=== PATIENT | male | born 1980 | race Caucasian/White ===

== ENCOUNTER 2017-02-12 23:17 | Emergency (ER) ==
--- NOTE | 2017-02-13 00:29 | PROVIDER DOCUMENTATION ---
HPI-Musculoskeletal Pain/Inj - GENERAL Chief Complaint: Extremity Injury Stated Complaint: FOOT PAIN Time Seen by Provider: 02/13/17 00:23 Source: patient - HX OF PRESENT ILLNESS-MUSKULOSKELTAL Nature of Presenting Problem: Pt is a 36 y/o M c chief complaint of R foot pain with lateral compression x 1 week. Pt states he kicked a cinder block and is concerned he may have fractured a bone. On arrival, pt is ambulating with difficulty or pain. Pt denies any loss of sensation or strength to his foot. Review of Systems - Adult - REVIEW OF SYSTEMS - ADULT Constitutional: reports: no symptoms reported. denies: chills, fatique Eyes: reports: no symptoms reported. denies: blurred vision, double vision Ears, Nose, Mouth & Throat: reports: no symptoms reported. denies: ear pain, nose pain, throat pain Cardiovascular: reports: no symptoms reported. denies: chest pain, orthopnea Respiratory: reports: no symptoms reported. denies: cough, shortness of breath Gastrointestinal: reports: no symptoms reported. denies: abdominal pain, nausea Genitourinary: reports: no symptoms reported. denies: dysuria, hematuria Musculoskeletal: reports: bone pain. denies: joint pain, joint swelling Integumentary: reports: no symptoms reported. denies: itching, rash Neurological: reports: no symptoms reported. denies: numbness, paresthesia Psychiatric: reports: no symptoms reported. denies: anxiety, emotional problems Endocrine: reports: no symptoms reported. denies: cold intolerance, heat intolerance Hematologic/Lymphatic: reports: no symptoms reported. denies: blood clots, low blood count Allergic/Immunologic: reports: no symptoms reported. denies: food allergy, frequent infections All Other Systems: Reviewed and Negative Past History - Adult - PAST MEDICAL HISTORY-ADULT Review of Records: reports: Old Records Reviewed, Nursing Assessment Review, Medications Reviewed, Social history reviewed & non-contributory. Major Childhood Illnesses: reports: denies history Cardiovascular: reports: denies history Respiratory: reports: denies history Gastrointestinal: reports: denies history Obstetrical/Gynecological: reports: denies history Genitourinary: reports: denies history Musculoskeletal: reports: denies history Neurological: reports: denies history Endocrine/Immune: reports: denies history Other Conditions: reports: other (cataract) - PRIOR SURGERIES/PROCEDURES Surgical/Procedure History: reports: none - PRIOR HOSPITALIZATIONS Prior Hospitalizations: reports: none - IMMUNIZATION STATUS Childhood Immunizations: See Nurse Assessment Flu Vaccine: See Nurse Assessment - FAMILY HISTORY Family History: reviewed, not pertinent - SOCIAL HISTORY Smoking: denies Substance Use: none/never Alcohol Use Frequency: never Living Situation: family Physical Exam-Injury Related - Physical Exam-Injury Related Initial Vital Signs Reviewed: Yes General Appearance: appears well, alert, no apparent distress Eyes: PERRL/EOMI, pink conjunctivae Head, Ears, Nose, Mouth & Throat: normocephalic/atraumatic, moist mucous membranes, normal ENT inspection Neck: non-tender, full range of motion, supple Respiratory: chest non-tender, lungs clear Cardiovascular: normal peripheral pulses, regular rate, rhythm, no edema Abdominal Exam: normal bowel sounds, non tender, soft Back Exam: normal inspection, no CVA tenderness, no vertebral tenderness Extremity: tenderness (R foot pain c lateral squeezing) Integumentary: normal color, warm/dry, blanching Neurologic: grossly normal, no motor/sensory deficits Psych/Mental Status: normal mood/affect, normal thought content, normal thought process, oriented x 3 - Glascow Coma Score Best Eye Response (Constantine): (4) open spontaneously Best Verbal Response (Constantine): (5) oriented Best Motor Response (Constantine): (6) obeys commands Progress - PLAN OF CARE/RESULTS Progress/Plan/Lab Results: Orders Category Date Time Status FOOT COMPLETE RIGHT [RAD] Stat Exams 02/12/17 23:25 Taken Vital Signs - 24 hr 02/12/17 02/13/17 23:22 00:46 Temperature 97.9 F 97.4 F L Pulse Rate 77 68 Respiratory 18 16 Rate Blood Pressure 142/94 135/71 O2 Sat by Pulse 100 98 Oximetry - XRAY 1 XRAY: Right XRAY Study: Foot Impression: Normal XRAY Interpretation: no fx Departure - Departure Time of Disposition Order: 00:28 DIAGNOSIS: Contusion, foot Qualifiers: Encounter type: initial encounter Laterality: right Qualified Code(s): S90.31XA - Contusion of right foot, initial encounter Disposition: HOME 01 Certified Medical Emergency: Emergent Condition: Stable Additional Instructions: ED Follow Up Instructions: You have been treated by a care provider in the Emergency Department. These instructions are being provided to you so you can have an understanding of how to care for yourself upon discharge. Upon discharge from the Emergency Department, you are responsible for making arrangements for follow-up care by a physician of your choice. Take all prescribed medications as directed. Return to the Emergency Department immediately for any new or worsening symptoms. You may call the Physician Referral phone number at [phone] to obtain a list of Physicians who are taking new patients. Prescriptions: Ibuprofen [Motrin] 800 mg PO Q8H PRN PRN #20 tablet PRN Reason: inflammation Omeprazole [Prilosec] 20 mg PO DAILY@0700 #20 capsule Referrals: [facility] [Provider Group] - Call for Appoint. -1 week Forms: Return to School/Parent Work Instructions: Ibuprofen tablets and capsules, Contusion, [id number], Omeprazole capsules (sprinkle caps) - Rx Attestation - Physician/ DELORES Attestation Patient care was provided by Advanced Practice Provider:: Yes Advanced Practice Provider:: Farhad Arana Advanced Practice Provider documentation review:: The Mid-level provider documentation, treatment plan and medical decision making was reviewed by the physician who agrees with all treatment and medical decision making by the MLP.
[2017-02-13 00:47] VITALS: BP 135/71
--- NOTE | 2017-02-13 06:39 | Diag Imaging Result Document ---
PROCEDURE NAME: FOOT COMPLETE RIGHT - 02/12/2017 RIGHT FOOT 3 VIEWS: FINDINGS: No fracture. No dislocation. IMPRESSION: No acute bony injury.
== END 2017-02-13 00:46 | disposition home or self-care (01) ==
LOC: P.ED 23:17
DX: S90.31XA Contusion of right foot, initial encounter (principal); M79.671 Pain in right foot; W22.8XXA Striking against or struck by other objects, initial encounter
CPT/HCPCS: 99283

== ENCOUNTER 2018-11-27 20:03 | Inpatient (IN) ==
--- NOTE | 2018-11-27 20:32 | Diag Imaging Result Doc PS360 ---
EXAM: ABDOMEN FLAT/UPRIGHT 11/27/2018 HISTORY: swallowed 2 disposable razor blade heads. TECHNIQUE: Flat and upright abdomen COMMENT: There is a large amount of stool throughout the colon particularly in the rectum. The small bowel and stomach are not distended. There is a foreign body which appears to be in the antrum of the stomach. Only one foreign body is identified. There are no previous studies. There is no evidence of organomegaly or mass. IMPRESSION: Foreign body in the stomach. Constipation. Electronically signed by Lucoh Roberts 11/27/2018 8:29 PM
--- NOTE | 2018-11-28 00:39 | PROVIDER DOCUMENTATION ---
This chart was entered by Marcia Barrientos Scribe, acting as scribe for Ruslan Valerio MD. HPI-General Adult - General Chief Complaint: General Adult Stated Complaint: PT STATES HE SWALLOWED TWO RAZOR BLADES Time Seen by Provider: 11/27/18 23:32 Source: patient Allergies/Adverse Reactions: Patient Allergies Allergy/AdvReac Type Severity Reaction Status Date / Time No Known Allergies Allergy Verified 12/17/15 19:03 Home Medications: Home Medication List Medication Instructions Recorded Confirmed Last Taken Type Ibuprofen [Motrin] 800 mg PO Q8H PRN PRN #20 tablet 02/13/17 Unknown Rx Omeprazole [Prilosec] 20 mg PO DAILY@0700 #20 capsule 02/13/17 Unknown Rx - History of Present Illness -Gen Adult Nature of Presenting Problems: pt is a 38 yr old male presenting from [facility] [place], pt reports he swallowed 2 razor blades at approx 1700 tonight. pt denies attempt to harm self, denies any pain at this time. Location of Pain/Injury: reports: none Pain Radiation: reports: no radiation Quality of Pain: reports: none Onset/Duration: reports: this evening (1700) Timing: reports: still present Context/Activities at Onset: reports: light activity Modifying Factors: improves with: nothing Associated Symptoms: denies: constipation, diarrhea, fever/chills, nausea, vomiting Similar Symptoms Previously?: No Recently seen or treated by another doctor?: No Review of Systems - Adult - REVIEW OF SYSTEMS - ADULT Constitutional: denies: chills, fever Eyes: reports: no symptoms reported Ears, Nose, Mouth & Throat: reports: no symptoms reported Cardiovascular: reports: no symptoms reported Respiratory: reports: no symptoms reported Gastrointestinal: denies: abdominal pain, hematemesis, diarrhea, nausea, rectal bleeding, vomiting Genitourinary: reports: no symptoms reported Musculoskeletal: reports: no symptoms reported Integumentary: reports: no symptoms reported Neurological: reports: no symptoms reported Psychiatric: reports: no symptoms reported Endocrine: reports: no symptoms reported Hematologic/Lymphatic: reports: no symptoms reported Allergic/Immunologic: reports: no symptoms reported All Other Systems: Reviewed and Negative Past History - Adult - PAST MEDICAL HISTORY-ADULT Review of Records: reports: Nursing Assessment Review, Medications Reviewed, Social history reviewed & non-contributory. Major Childhood Illnesses: reports: denies history Cardiovascular: reports: denies history Respiratory: reports: denies history Gastrointestinal: reports: denies history Obstetrical/Gynecological: reports: denies history Genitourinary: reports: denies history Musculoskeletal: reports: denies history Neurological: reports: denies history Endocrine/Immune: reports: denies history Other Conditions: reports: other (cataract) - PRIOR SURGERIES/PROCEDURES Surgical/Procedure History: reports: none - PRIOR HOSPITALIZATIONS Prior Hospitalizations: reports: none - IMMUNIZATION STATUS Childhood Immunizations: See Nurse Assessment Flu Vaccine: See Nurse Assessment - FAMILY HISTORY Family History: reviewed, not pertinent - SOCIAL HISTORY Living Situation: other (inmate) Physical Exam-General - PHYSICAL EXAM-ADULT Initial Vital Signs Reviewed: Yes - CONSTITUTIONAL General Appearance: appears well, alert, no apparent distress - EYES Eyes: PERRL/EOMI - HEAD, EARS, NOSE, MOUTH & THROAT HENMT: normocephalic/atraumatic, moist mucous membranes - NECK Neck: non-tender, full range of motion, supple, normal inspection - RESPIRATORY Respiratory: chest non-tender, lungs clear, normal breath sounds - CARDIOVASCULAR Cardiovascular: normal peripheral pulses, regular rate, rhythm, no edema - GASTROINTESTINAL (ABDOMEN) Abdominal Exam: normal bowel sounds, non tender, soft - LYMPHATIC Lymphatic: no adenopathy - MUSCULOSKELETAL Back Exam: normal inspection, no CVA tenderness, no vertebral tenderness Extremity: normal range of motion, non-tender, normal gait, normal inspection - SKIN Integumentary: normal color, normal turgor, warm/dry - NEUROLOGIC Neurologic: grossly normal, no motor/sensory deficits - PSYCHIATRIC Psych/Mental Status: normal mood/affect, normal thought content, normal thought process, oriented x 3 Progress - PLAN OF CARE/RESULTS Progress/Plan/Lab Results: Vital Signs - 8 hr 11/27/18 20:09 Temperature 98.2 F Pulse Rate 81 Respiratory Rate 14 Blood Pressure 146/89 O2 Sat by Pulse Oximetry 100 Orders Category Date Time Status ABDOMEN FLAT/UPRIGHT [RAD] Stat Exams 11/27/18 20:13 Completed - XRAY 1 XRAY Study: Abdomen Impression: Abnormal (Signed EXAM: ABDOMEN FLAT/UPRIGHT 11/27/2018 HISTORY: swallowed 2 disposable razor blade heads. TECHNIQUE: Flat and upright abdomen COMMENT: There is a large amount of stool throughout the colon particularly in the rectum. The small bowel and stomach are not distended. There is a foreign body which appears to be in the antrum of the stomach. Only one foreign body is identified. There are no previous studies. There is no evidence of organomegaly or mass. IMPRESSION: Foreign body in the stomach. Constipation. Electronically signed by Lucho Roberts 11/27/2018 8:29 PM 11/27/182028 Interpreting Physician: Lucho Roberts MD Dictated Date/Time: 11/27/182027 cc: Diego Merrill MD; None,PCP) Comparison with other Films: no prior study - CONSULTS/PCP/HOSPITALIST Notification #1 *Consult/PCP/Hospitalist*: Dr. Elmore Time Discussed: 23:45 Consult Disposition: Admit #2 Consult: Dr. Calle Time Discussed: 00:38 Consult Disposition: Admit Departure - Departure Date of Disposition Decision: 11/28/18 Time of Disposition Decision: 00:38 DIAGNOSIS: Foreign body ingestion Qualifiers: Encounter type: initial encounter Qualified Code(s): T18.9XXA - Foreign body of alimentary tract, part unspecified, initial encounter Disposition: ADMITTED INPATIENT 09 Certified Medical Emergency: Emergent Condition: Serious - Critical Care Note This patient required my direct & personal management of CC.: No Attestation - Physician/ DELORES Attestation The physician spent face to face time with patient:: Yes Advanced Practice Provider documentation review:: Supervising physician onsite and consulted in the evaluation and care of this patient. The physician did have a face to face encounter with the patient. This chart was documented by the indicated scribe, (Marcia Barrientos Scribe) and accurately reflects the services I performed and decisions made by me, Ruslan Valerio MD, as attested by the provider's signature.
[2018-11-28] MEDS ORDERED: PROTONIX IV SCH (00:45)
[2018-11-28] MEDS ORDERED: SODIUM CHLORIDE 0.9% INJ SCH (00:45)
[2018-11-28 02:20] LABS: BASO# 0.04 X1000 (0.0-0.2); BASO% 0.6 % (0.0-0.8); EOS# 0.24 X1000 (0.0-0.7); EOS% 3.6 % (0.0-10.0); HEMOGLOBIN 16.1 g/dL (14.0-18.0); LYMPH# 2.34 X1000 (1.2-3.4); LYMPH% 34.8 % (20.5-51.1); MCH 25.9 PG (27-31); MCHC 32.9 g/dL (33-37); MCV 78.9 FL (81-99); MONO# 0.56 X1000 (0.11-0.59); MONO% 8.3 % (1.7-9.3); MPV 10.6 FL (7.4-10.4); NEUT# 3.55 X1000 (1.4-6.5); NEUT% 52.7 % (42.2-75.2); PLT 240 X1000 (130-400); RBC 6.21 XMIL (4.7-6.1); RDW 13.2 % (11.5-14.5); WBC 6.73 X1000 (4.8-10.8)
[2018-11-28 02:28] LABS: INR 1.05; PROTIME 14.5 Seconds (11.0-16.0)
[2018-11-28 02:29] LABS: PTT 31.2 Seconds (22.3-41.8)
[2018-11-28 02:37] LABS: AGAP 10; ALB/GLOB RATIO 1.4; ALBUMIN 4.1 g/dL (3.5-5.0); ALKALINE PHOSPHATASE 54 U/L (32-122); BUN 8 mg/dL (8-22); CALCIUM 8.9 mg/dL (8.8-10.2); CHLORIDE 105 mmol/L (98-107); COSMO 283; CREATININE 0.9 mg/dL (0.7-1.2); ESTIMATED GFR > 60; GLUCOSE 90 mg/dL (70-104); GOT 14 U/L (10-34); GPT 17 U/L (10-44); POTASSIUM 3.9 mmol/L (3.5-5.1); SODIUM 143 mmol/L (136-145); TCO2 28 mmol/L (25-35); TOTAL BILIRUBIN 0.39 mg/dL (0.20-1.00)
[2018-11-28] MEDS ORDERED: NS 1,000 ML IV SCH (03:54)
[2018-11-28] MEDS ORDERED: ZOFRAN IV PRN (03:54)
--- NOTE | 2018-11-28 04:16 | HISTORY AND PHYSICAL ---
CHIEF COMPLAINT: Swallowed razor blades. HISTORY OF PRESENT ILLNESS: This is a 38-year-old male who was at [facility]. Reportedly swallowed 2 razor blades at approximately 17:00 tonight. Denies attempting to harm himself. Denies any pain. States he is unsure why he swallowed the razor blades. He has no past medical history. A flat and upright abdominal x-ray was obtained that showed constipation and foreign body in the stomach. Foreign body appears to be in the antrum of the stomach. Only 1 foreign body was identified. The patient will be admitted with Gastroenterology and [facility] [place] consultation. PAST MEDICAL HISTORY: None. PREVIOUS SURGICAL HISTORY: Bilateral cataract surgery. SOCIAL HISTORY: He has been in [place] [facility]. Before that time, he smoked 1 pack of cigarettes per day. Denied alcohol or illicit drugs. Lives with a friend. He is unemployed. FAMILY HISTORY: Maternal grandfather had lung cancer. Paternal grandfather had Parkinson's. Mother has hyperlipidemia. ALLERGIES: No known drug allergies. HOME MEDICATIONS: No home medications. REVIEW OF SYSTEMS: Fourteen point review of systems conducted with the patient. All systems are negative. Patient has no complaint. PHYSICAL EXAMINATION: VITAL SIGNS: Temperature 98, pulse 60, respirations 16, blood pressure 119/63, oxygen saturation 100% on room air. GENERAL: Pleasant 38-year-old male lying in the ER stretcher, answers all questions appropriately, is alert and oriented times 3. Denies wanting to harm himself or others. He is in no acute distress. HEENT: Head is atraumatic, normocephalic. Pupils equal, round, reactive to light. Extraocular eye movement intact. Sclerae are anicteric. Conjunctiva is pink. Oral mucosa is moist. NECK: Supple. No JVD. No thyromegaly. Trachea is midline. No cervical lymphadenopathy. CARDIAC: S1, S2 appreciated. No murmurs, gallops, rubs. LUNGS: Clear to auscultation bilaterally. No rhonchi, wheezes, rales. Symmetric rise and fall with respirations. ABDOMEN: Soft, nondistended, nontender. Bowel sounds present all 4 quadrants, hypoactive. No pulsatile mass. No organomegaly. EXTREMITIES: No clubbing, cyanosis, or edema. Two-plus pedal pulses bilaterally. GENITOURINARY: No bladder distention. Patient voids. Otherwise deferred. NEUROLOGICAL: Alert and oriented times 3. Cranial nerves II through XII grossly intact. DIAGNOSTIC DATA: Abdominal x-ray shows 1 foreign body in the antrum of the stomach and constipation. LABORATORY DATA: Pending. ASSESSMENT AND PLAN: 1. Ingestion of foreign body. Patient states that he swallowed 2 razor blades. One was noted on the x-ray. Repeat flat and upright x-ray tomorrow at 11 to see progress of foreign body moving through the GI tract. Consult GI. Consult [facility] [place]. Patient denies suicidal intent or homicidal intent at this time. States that he does not know why he ate the razor blades. 2. Constipation. We will defer treatment to GI specialist who will see the patient tomorrow morning. 3. Tobacco abuse. Patient stopped smoking 1 week ago when he was incarcerated. Smoking cessation was gone over with the patient and told that he should go ahead and quit as he has not smoked in 1 week. He neither confirmed nor denied his intent to stop smoking. Further smoking cessation teaching would benefit the patient. We will review laboratory data when it is completed. Further recommendations per patient clinical course. Dictated by KARTIK De La Torre for Gisela Calle MD cc: KARTIK De La Torre MD Independent exam and assessment performed by me at bedside with SYSTEM OPERATION SUPERINTENDENT. Discussed plan of care with SYSTEM OPERATION SUPERINTENDENT. Serial Abd X rays to be done to track razors. If still in stomach this morning, consider endoscopic extraction. MELITA
[2018-11-28 06:43] VITALS: BP 117/86
--- NOTE | 2018-11-28 11:18 | Diag Imaging Result Doc PS360 ---
EXAM: ABDOMEN FLAT/UPRIGHT 11/28/2018 HISTORY: progress of swallowed objects TECHNIQUE: Flat and upright abdomen COMMENT: There is a fairly large amount of stool present in the colon. The foreign body which was previously apparently in the distal stomach is now in the ascending colon. Otherwise there has been no significant change since 11/27/2018. IMPRESSION: Constipation. Foreign body in right colon. Electronically signed by Lucho Roberts 11/28/2018 11:15 AM
[2018-11-28 12:35] LABS: BASO# 0.04 X1000 (0.0-0.2); BASO% 0.8 % (0.0-0.8); EOS# 0.17 X1000 (0.0-0.7); EOS% 3.6 % (0.0-10.0); HEMATOCRIT 48.3 % (42.0-52.0); LYMPH% 35.7 % (20.5-51.1); MCH 26.2 PG (27-31); MCHC 33.1 g/dL (33-37); MCV 79.1 FL (81-99); MONO# 0.47 X1000 (0.11-0.59); MONO% 9.9 % (1.7-9.3); MPV 10.4 FL (7.4-10.4); NEUT# 2.38 X1000 (1.4-6.5); PLT 205 X1000 (130-400); RBC 6.11 XMIL (4.7-6.1); RDW 13.5 % (11.5-14.5); WBC 4.76 X1000 (4.8-10.8)
--- NOTE | 2018-11-29 04:13 | DISCHARGE SUMMARY ---
ADMISSION DATE: 11/28/2018 DISCHARGE DATE: 11/28/2018 ADDENDUM: Patient seen and examined again by myself. He has had review. He has history of ingestion of foreign body. [*]he swallowed [address] Elmore with GI was consulted and has cleared patient for discharge. The patient will be discharged. He stopped smoking approximately a week ago when he was incarcerated. We will not start any other medications. cc: Guilherme Page MD
== END 2018-11-28 13:07 | DRG 395 ==
LOC: ED 20:03 → SUATTDRO 11-28 02:30 → EDIPHOLD 11-28 02:30
PROVIDERS: ATTEND Family Medicine
CPT/HCPCS: 74019; 74020; 80053; 85025; 85610; 85730; 96374; 99284; C9113; J7030; S0164